=== PATIENT | male | born 1980 | race Caucasian/White ===

== ENCOUNTER 2020-12-28 06:12 | Outpatient (REF) | payer OTHER, SELFPAY ==
[2020-12-28 07:01] LABS: MANUAL DIFF FLAG NO
[2020-12-28 07:10] LABS: Basophils Absolute Auto 0.1 X10*3/uL (0.0-0.2); Basophils Percent Auto 0.6 % (0-2); Eosinophils Absolute Auto 0.3 X10*3/uL (0.0-0.4); Eosinophils Percent Auto 2.7 % (0-4); Hematocrit 48.3 % (42-52); Imm Gran Abs Auto 0.05 X10*3/uL (0.00-0.03); Imm Gran Pct Auto 0.4 % (0.0-0.4); Lymphocytes Absolute Auto 2.8 X10*3/uL (1.2-4.9); Lymphocytes Percent Auto 22.7 % (20-40); Mean Corpuscular HGB Conc 33.1 g/dl (31.0-36.0); Mean Corpuscular Hemoglobin 29.3 pg (27.0-33.0); Mean Corpuscular Volume 88.3 fL (80-98); Mean Platelet Volume 9.9 fL (9.4-12.4); Monocytes Percent Auto 8.1 % (2-11); Neutrophils Absolute Auto 7.9 X10*3/uL (2.0-8.3); Neutrophils Percent Auto 65.5 % (45-73); Platelet Count 384 X10*3/uL (160-400); Red Blood Count 5.47 X10*6/uL (4.60-5.80); Red Cell Distribution Width 13.2 % (11.0-16.0); White Blood Count 12.1 X10*3/uL (4.8-10.8)
[2020-12-28 07:36] LABS: Alanine Aminotransferase 15 U/L (0-40); Albumin Level 4.6 g/dL (3.5-5.0); Alkaline Phosphatase 111 U/L (39-117); Anion Gap 12 (12-20); Aspartate Amino Transferase 15 U/L (5-37); Bilirubin Total 0.6 mg/dL (0.0-1.0); Blood Urea Nitrogen 8 mg/dL (9-16); Calcium 9.9 mg/dL (8.4-10.2); Carbon Dioxide 30 mmol/L (22-29); Chloride 101 mmol/L (96-108); Cholesterol 200 mg/dL; Estimated Glomerular Filt Rate > 60; Glucose Fasting 113 mg/dL (60-99); HDL Cholesterol 41 mg/dL; LDL Cholesterol Calculated 128 mg/dl; Potassium 5.1 mmol/L (3.3-5.1); Sodium 138 mmol/L (135-145); Total Protein 7.7 g/dL (6.5-8.0); Triglycerides 158 mg/dL
[2020-12-28 11:50] LABS: Prostate Specific Antigen Scr 1.14 ng/mL (<0.05-4.0)
== END 2020-12-28 06:13 | disposition home or self-care (01) ==
LOC: HO.LAB 06:12
PROVIDERS: PCP Internal Medicine; Visit Provider Internal Medicine
DX: J44.9 Chronic obstructive pulmonary disease, unspecified (principal); I10 Essential (primary) hypertension; R35.1 Nocturia; Z12.5 Encounter for screening for malignant neoplasm of prostate
CPT/HCPCS: 36415; 80053; 80061; 84153; 85025

== ENCOUNTER 2021-09-26 12:55 | Outpatient (REF) | payer OTHER, SELFPAY ==
[2021-09-26 13:09] LABS: MANUAL DIFF FLAG NO
[2021-09-26 13:36] LABS: Basophils Absolute Auto 0.1 X10*3/uL (0.0-0.2); Basophils Percent Auto 0.4 % (0-2); Eosinophils Absolute Auto 0.4 X10*3/uL (0.0-0.4); Eosinophils Percent Auto 2.2 % (0-4); Hematocrit 44.9 % (42.0-52.0); Hemoglobin 14.6 g/dl (14.0-18.0); Imm Gran Abs Auto 0.06 X10*3/uL (0.00-0.03); Imm Gran Pct Auto 0.4 % (0.0-0.4); Lymphocytes Absolute Auto 3.1 X10*3/uL (1.2-4.9); Mean Corpuscular HGB Conc 32.5 g/dl (31.0-36.0); Mean Corpuscular Hemoglobin 29.3 pg (27.0-33.0); Monocytes Absolute Auto 1.1 X10*3/uL (0.1-1.2); Monocytes Percent Auto 6.8 % (2-11); Neutrophils Absolute Auto 11.5 x10*3/uL (2.0-8.3); Neutrophils Percent Auto 71.2 % (45-73); Platelet Count 367 X10*3/uL (160-400); Red Blood Count 4.99 X10*6/uL (4.60-5.80); Red Cell Distribution Width 13.3 % (11.0-16.0); White Blood Count 16.2 X10*3/uL (4.8-10.8)
[2021-09-26 14:00] LABS: Estimated Average Glucose 123 mg/dL; Hemoglobin A1c % 5.9 %
[2021-09-26 14:09] LABS: Alanine Aminotransferase 15 U/L (0-40); Albumin Level 4.5 g/dL (3.5-5.0); Alkaline Phosphatase 92 U/L (39-117); Anion Gap 12 (12-20); Aspartate Amino Transferase 13 U/L (5-37); Bilirubin Total 0.4 mg/dL (0.0-1.0); Blood Urea Nitrogen 13 mg/dL (9-16); Calcium 9.9 mg/dL (8.4-10.2); Carbon Dioxide 29 mmol/L (22-29); Chloride 105 mmol/L (96-108); Estimated Glomerular Filt Rate > 60; Glucose Random 96 mg/dL (60-115); Potassium 4.5 mmol/L (3.3-5.1); Sodium 141 mmol/L (135-145); Total Protein 7.5 g/dL (6.5-8.0)
== END 2021-09-26 12:56 | disposition home or self-care (01) ==
LOC: HO.LAB 12:55
PROVIDERS: PCP Internal Medicine; Visit Provider Internal Medicine
DX: I10 Essential (primary) hypertension (principal); J44.9 Chronic obstructive pulmonary disease, unspecified; R73.03 Prediabetes
CPT/HCPCS: 36415; 80053; 83036; 85025

== ENCOUNTER 2021-10-13 07:51 | Outpatient (RCR) | payer OTHER, SELFPAY ==
--- NOTE | 2021-10-13 11:35 | MHC.PT.EP ---
[facility] [place] Office [place] Office [place] Office [address] Ted Fraser [address] [phone] F: [phone] F: [phone] F: [phone] F: [phone] Physical Therapy Plan of Care Date of Evaluation: Date of Surgery: NA Diagnosis: Right SI Dysfunction Assessment: Jass is 41 M referred to PT for right SI dysfunction , upon evaluation he presents with R LBP that is relieved during extension positions. He is able to perform his ADLs and has returned to work but does have difficulty with some due to pain such as putting on his shoes. His impairments are consistent with that of an extension preference classification as long as moderately weak TrAs. He would benefit from skilled PT to address the aforementioned impairments and improve tolerance to functional activities. Frequency and Duration: The patient will be seen 2/week for 4 weeks Short Term Goals: Patient will be self aware of pain management strategies in 2 weeks. Patient will develop postural awareness in order to prevent onset of pain in 2 weeks. [facility] Goals: Pt will be able to move trunk through all planes of motion without pain which will enable him to dress his lower body in 3 weeks Patient will be I will HEP to ensure retirement pain management and retention of functional capabilities in 4 weeks. Patient will demonstrate an increase in muscle strength by 1 grade and return to PLOF without pain in 4 weeks Treatment Plan: Modalities to reduce pain, spasms and effusion. Manual therapy to restore motion and function. Therapeutic exercise to improve strength and flexibility. Neuromuscular re-education for posture and balance. Therapeutic activities to return to functional activities of daily living. Electronically signed by: Tri Blanton PT DPT Please sign and return to therapist. Thank you for your referral.
--- NOTE | 2021-11-13 15:48 | MHC.PT.DC ---
[facility] [place] Office [place] Office [place] Office [address] Ted Fraser [address] [phone] F: [phone] F: [phone] F: [phone] F: [phone] Physical Therapy Discharge Report Diagnosis: Right SI Dysfunction Date of Surgery: NA Date of Evaluation: 10/13/21 Date of Discharge: 11/13/21 Treatments to Date: 1 Cancellations to Date: 4 No Shows to Date: 2 Discharge Status: Visit Non-compliance Discharge Summary: Jass canceled 2 weeks of appointment after evaluation due to in the family. After that he no showed for 2 appointments. He has not attended any PT for over a month. He is therefore being d/c for non compliance. Electronically signed by: Tri Blanton, PT DPT Please sign and return to therapist. Thank you for your referral.
== END 2021-11-13 15:49 | disposition home or self-care (01) ==
LOC: HO.PT 07:51
PROVIDERS: PCP Internal Medicine; Visit Provider Internal Medicine
DX: M46.1 Sacroiliitis, not elsewhere classified (principal)
CPT/HCPCS: 97110; 97112; 97161

== ENCOUNTER 2021-10-23 13:59 | Outpatient (REF) | payer OTHER, SELFPAY ==
[2021-10-23 14:11] LABS: Basophils Absolute Auto 0.1 X10*3/uL (0.0-0.2); Basophils Percent Auto 0.6 % (0-2); Eosinophils Absolute Auto 0.4 X10*3/uL (0.0-0.4); Eosinophils Percent Auto 2.4 % (0-4); Hematocrit 46.6 % (42.0-52.0); Hemoglobin 15.5 g/dl (14.0-18.0); Imm Gran Abs Auto 0.06 X10*3/uL (0.00-0.03); Imm Gran Pct Auto 0.4 % (0.0-0.4); Lymphocytes Absolute Auto 3.4 X10*3/uL (1.2-4.9); Lymphocytes Percent Auto 23.2 % (20-40); MANUAL DIFF FLAG NO; Mean Corpuscular HGB Conc 33.3 g/dl (31.0-36.0); Mean Corpuscular Hemoglobin 29.5 pg (27.0-33.0); Mean Corpuscular Volume 88.8 fL (80.0-98.0); Mean Platelet Volume 9.4 fL (9.4-12.4); Neutrophils Absolute Auto 9.8 x10*3/uL (2.0-8.3); Neutrophils Percent Auto 66.4 % (45-73); Platelet Count 405 X10*3/uL (160-400); Red Blood Count 5.25 X10*6/uL (4.60-5.80); Red Cell Distribution Width 13.2 % (11.0-16.0); White Blood Count 14.8 X10*3/uL (4.8-10.8)
[2021-10-23 14:50] LABS: Lactate Dehydrogenase 177 U/L (118-273)
== END 2021-10-23 14:00 | disposition home or self-care (01) ==
LOC: HO.LAB 13:59
PROVIDERS: PCP Internal Medicine; Visit Provider Internal Medicine
DX: I10 Essential (primary) hypertension (principal); D72.829 Elevated white blood cell count, unspecified
CPT/HCPCS: 36415; 83615; 85025

== ENCOUNTER 2021-11-02 14:26 | Outpatient (REF) | payer OTHER, SELFPAY ==
[2021-11-02 15:44] LABS: Alanine Aminotransferase 17 U/L (0-40); Albumin Level 4.5 g/dL (3.5-5.0); Alkaline Phosphatase 92 U/L (39-117); Anion Gap 14 (12-20); Aspartate Amino Transferase 17 U/L (5-37); Bilirubin Total 0.3 mg/dL (0.0-1.0); Blood Urea Nitrogen 7 mg/dL (9-16); C Reactive Protein 0.28 mg/dL (< or = 0.50); Calcium 9.5 mg/dL (8.4-10.2); Carbon Dioxide 28 mmol/L (22-29); Chloride 103 mmol/L (96-108); Estimated Glomerular Filt Rate > 60; Glucose Random 122 mg/dL (60-115); Potassium 4.6 mmol/L (3.3-5.1); Sodium 140 mmol/L (135-145); Total Protein 7.4 g/dL (6.5-8.0)
[2021-11-02 15:56] LABS: Erythrocyte Sedimentation Rate 2 MM/HR (0-15)
== END 2021-11-02 14:27 | disposition home or self-care (01) ==
LOC: HO.LAB 14:26
PROVIDERS: PCP Internal Medicine; Visit Provider Internal Medicine
DX: I10 Essential (primary) hypertension (principal); D72.829 Elevated white blood cell count, unspecified
CPT/HCPCS: 36415; 80053; 85652; 86140

== ENCOUNTER 2021-12-12 14:33 | Outpatient (REF) | payer OTHER, SELFPAY ==
--- NOTE | ~2021-12-12 | XR_ITS ---
EXAMINATION: XR LUMBOSACRAL SPINE CLINICAL INFORMATION: Back pain, degenerative changes. COMPARISON: Dorsal spine radiographs 08/06/2018. TECHNIQUE: Three views of the lumbosacral spine. FINDINGS: The lumbar vertebral bodies are normal in height and there is normal lumbar lordosis. There are hypoplastic 12th ribs with 4 nonrib-bearing lumbar vertebrae versus normal lumbar segmentation. There is no lumbar vertebral compression, spondylolisthesis, destructive process. There are degenerative disc changes fifth presacral disc level with disc narrowing and vertebral spurring. There are also degenerative disc changes lower thoracic spine also noted on the prior radiographs 2019. The SI joints and visualized sacrum are unremarkable. XR/XR lumbar spine 2-3V IMPRESSION: -Degenerative disc changes lower thoracic and upper lumbar spine. -No vertebral compression, spondylolisthesis, destructive process.
[2021-12-12 14:49] LABS: MANUAL DIFF FLAG NO
[2021-12-12 15:13] LABS: Basophils Absolute Auto 0.1 X10*3/uL (0.0-0.2); Basophils Percent Auto 0.9 % (0-2); Eosinophils Absolute Auto 0.4 X10*3/uL (0.0-0.4); Eosinophils Percent Auto 3.2 % (0-4); Hematocrit 43.9 % (42.0-52.0); Hemoglobin 14.7 g/dl (14.0-18.0); Imm Gran Abs Auto 0.03 X10*3/uL (0.00-0.03); Imm Gran Pct Auto 0.3 % (0.0-0.4); Lymphocytes Absolute Auto 3.4 X10*3/uL (1.2-4.9); Lymphocytes Percent Auto 30.7 % (20-40); Mean Corpuscular HGB Conc 33.5 g/dl (31.0-36.0); Mean Corpuscular Hemoglobin 29.5 pg (27.0-33.0); Mean Platelet Volume 9.9 fL (9.4-12.4); Monocytes Absolute Auto 0.9 X10*3/uL (0.1-1.2); Monocytes Percent Auto 7.9 % (2-11); Neutrophils Absolute Auto 6.3 x10*3/uL (2.0-8.3); Platelet Count 377 X10*3/uL (160-400); Red Blood Count 4.99 X10*6/uL (4.60-5.80); Red Cell Distribution Width 13.3 % (11.0-16.0)
[2021-12-12 15:30] LABS: Appearance Urine CLEAR; Color Urine YELLOW; Glucose Urine UA NEG (NEG); Leukocyte Esterase Urine NEG (NEG); Nitrite Urine NEG (NEG); PH 5.5 (5.0-8.0); Specific Gravity - Urine >= 1.030 (1.005-1.025); Urine Blood NEG (NEG); Urine Ketones 5 MG/DL (NEG); Urine Protein NEG (NEG-TRACE)
[2021-12-12 15:36] LABS: Estimated Average Glucose 123 mg/dL; Hemoglobin A1c % 5.9 %
[2021-12-12 15:41] LABS: Alanine Aminotransferase 16 U/L (0-40); Albumin Level 4.5 g/dL (3.5-5.0); Alkaline Phosphatase 95 U/L (39-117); Anion Gap 15 (12-20); Aspartate Amino Transferase 14 U/L (5-37); Bilirubin Total 0.4 mg/dL (0.0-1.0); Blood Urea Nitrogen 13 mg/dL (9-16); Calcium 9.3 mg/dL (8.4-10.2); Carbon Dioxide 26 mmol/L (22-29); Chloride 102 mmol/L (96-108); Estimated Glomerular Filt Rate > 60; Glucose Random 123 mg/dL (60-115); Potassium 4.3 mmol/L (3.3-5.1); Sodium 139 mmol/L (135-145); Total Protein 7.4 g/dL (6.5-8.0)
== END 2021-12-12 14:34 | disposition home or self-care (01) ==
LOC: HO.LAB 14:33
PROVIDERS: PCP Internal Medicine; Visit Provider Internal Medicine
DX: M54.9 Dorsalgia, unspecified (principal); R10.9 Unspecified abdominal pain
CPT/HCPCS: 36415; 72100; 80053; 81003; 83036; 85025

== ENCOUNTER 2022-06-05 06:27 | Emergency (ER) | payer OTHER, SELFPAY ==
--- NOTE | ~2022-06-05 | CT_ITS ---
EXAMINATION: CT ABDOMEN AND PELVIS WITHOUT CONTRAST CLINICAL INFORMATION: Left flank pain. History of bilateral renal calculi. COMPARISON: Renal ultrasound 10/02/2017. TECHNIQUE: Multidetector volumetric imaging was performed from the superior aspect of the liver through the pubic symphysis. Sagittal and coronal reformatted images were obtained on the technologist's workstation. This CT examination was performed using dose optimization techniques as appropriate, variously including the following: *Automated exposure control *Adjustment of mA and/or kV according to patient size (this includes techniques or standardized protocols for targeted exams where dose is matched to indication/reason for exam; i.e. extremities or head) *Use of iterative reconstruction technique DLP: 490 mGy-cm FINDINGS: LUNG BASES: 2 mm nodule in the right lower lobe just posterior to the major fissure, image 9 series 3. No focal consolidation or pleural effusion. LIVER, GALLBLADDER, AND BILIARY TREE: The noncontrast liver is normal in size, shape and attenuation without discrete focal lesion. Normal appearance of the gallbladder. No biliary ductal dilatation. PANCREAS: Limited noncontrast examination, unremarkable. SPLEEN: Limited noncontrast examination, unremarkable. ADRENAL GLANDS: No adrenal nodule or mass. KIDNEYS AND URETERS: No hydroureteronephrosis or ureteral calculi. There is a 7 mm calculus in the lower right kidney measuring 956 Hounsfield units located at 9 cm from the skin surface of the posterior axillary line (3:277). There is a grouped of less denser calcifications in the lateral mid to upper right kidney (2:25), suggesting calcifications within renal tubules/focal medullary nephrocalcinosis. There is a punctate calculus in the lower right kidney (2:29). No significant perinephric fat stranding. Evaluation of focal renal lesion is limited in the absence of IV contrast. There is a simple fluid cyst in the anterior surface of the left kidney measuring 4.8 cm with some equivocal thin internal septations, classified as Bosniak 1/2 and for which no imaging follow-up is recommended. Cortical scarring of the lateral lower left kidney. BLADDER: Unremarkable. GASTROINTESTINAL TRACT: Tiny hiatal hernia with prominent but subcentimeter short axis lower periesophageal lymph nodes, for instance measuring 0.7 cm on image 6 series 2. The stomach and the small bowel are nondilated. Normal appendix. Mild colonic diverticulosis. No pericolonic inflammatory changes. No evidence of bowel obstruction. Nonspecific luminal narrowing of the proximal transverse colon, likely related with peristalsis. Nonspecific bulky high density material in the cecum measuring up to 4 cm in length (2:38). ABDOMINAL WALL: No significant hernia is appreciated. LYMPH NODES: No lymphadenopathy. VASCULAR: Abdominal aorta is of normal diameter. Scattered atherosclerotic disease. PELVIC VISCERA: Central coarse prostatic calcifications. No pelvic mass. Symmetric seminal vesicles. OSSEOUS STRUCTURES: Mild superior endplate compression deformity at L1, new compared to radiograph from 12/12/2021. CT/CT abdomen pelvis wo IV con IMPRESSION: 1. No hydroureteronephrosis or ureteral calculi. 2. Nonobstructive right-sided renal calculi, largest measuring 7 mm in the lower right kidney. 3. Mild diverticulosis but no evidence of acute diverticulitis. 4. Nonspecific bulky/polypoid high density material in the cecum, recommend correlation with colonoscopy to rule out underlying lesions. Areas of luminal narrowing in the transverse colon are suboptimally assessed due to underdistention and may be related with peristalsis. No pericolonic inflammatory changes. No evidence of bowel obstruction. 5. Tiny hiatal hernia with a few prominent but not pathologically enlarged lower esophageal lymph nodes. Recommend clinical correlation for gastritis/reflux disease and if pertinent correlation with upper endoscopy. 6. Age indeterminate compression deformity at L1, correlate with point tenderness. 7. Incidentally noted 2 mm pulmonary nodule in the right lower lobe. Assuming patient has no history of malignancy, recommend follow-up per Fleischner Society recommendations. According to the UPDATED 2017 Fleischner Society recommendations, the advised followup imaging for solid nodules < 6 mm is: LOW RISK PATIENT: No routine follow up. HIGH RISK PATIENT: Optional CT at 12 months. Fleischner guidelines were followed.
[2022-06-05 06:42] VITALS: BP 151/86; PULSE 93; RESP 16; TEMP 36.7; O2SAT 99
[2022-06-05 07:38] LABS: MANUAL DIFF FLAG NO
[2022-06-05 07:39] LABS: Basophils Absolute Auto 0.1 X10*3/uL (0.0-0.2); Basophils Percent Auto 0.6 % (0-2); Eosinophils Absolute Auto 0.4 X10*3/uL (0.0-0.4); Eosinophils Percent Auto 3.2 % (0-4); Hematocrit 42.7 % (42.0-52.0); Hemoglobin 14.3 g/dl (14.0-18.0); Imm Gran Abs Auto 0.03 X10*3/uL (0.00-0.03); Imm Gran Pct Auto 0.3 % (0.0-0.4); Lymphocytes Absolute Auto 2.6 X10*3/uL (1.2-4.9); Lymphocytes Percent Auto 22.3 % (20-40); Mean Corpuscular HGB Conc 33.5 g/dl (31.0-36.0); Mean Corpuscular Hemoglobin 29.4 pg (27.0-33.0); Mean Corpuscular Volume 87.9 fL (80.0-98.0); Mean Platelet Volume 9.4 fL (9.4-12.4); Monocytes Absolute Auto 0.7 X10*3/uL (0.1-1.2); Monocytes Percent Auto 6.2 % (2-11); Neutrophils Absolute Auto 7.8 x10*3/uL (2.0-8.3); Neutrophils Percent Auto 67.4 % (45-73); Platelet Count 352 X10*3/uL (160-400); Red Blood Count 4.86 X10*6/uL (4.60-5.80); Red Cell Distribution Width 13.5 % (11.0-16.0); White Blood Count 11.6 X10*3/uL (4.8-10.8)
[2022-06-05 07:59] LABS: Anion Gap 11 (12-20); Blood Urea Nitrogen 14 mg/dL (9-16); Calcium 9.5 mg/dL (8.4-10.2); Carbon Dioxide 30 mmol/L (22-29); Chloride 105 mmol/L (96-108); Creatinine Clr Calc Pharmacy 114.7; Estimated Glomerular Filt Rate > 60; Glucose Random 108 mg/dL (60-115); Potassium 4.2 mmol/L (3.3-5.1); Sodium 142 mmol/L (135-145)
--- NOTE | 2022-06-05 08:32 | ED.BACK ---
HPI - Back Pain/Injury General Chief Complaint: Abdominal Pain Stated Complaint: back pain Time Seen by Provider: 06/05/22 08:24 Source: patient Mode of arrival: ambulatory Limitations: no limitations History of Present Illness HPI Narrative: Patient is a 41-year-old male presents to the emergency department for evaluation of bilateral lower back /flank pain. Onset of symptoms was 3 days ago. He is also endorsing difficulty with urination, described as difficulty initiating stream. Denies dysuria, urinary frequency, hematuria. He reports a history of nephrolithiasis approximately 6 years ago requiring multiple lithotripsies. Has not had any recurrent issues with kidney stones. At this time he denies abdominal pain, nausea, vomiting, chest pain, shortness of breath, numbness or tingling of the perineum or bilateral lower extremities, bladder bowel dysfunction. He denies any precipitating injuries or falls. He does however report that he occasionally does some heavy lifting, but does not recall a precipitating event that would have brought this pain on. MD elicited complaint: back pain Related Data Previous Rx's Medication Instructions Recorded cyclobenzaprine 10 mg tablet 10 mg PO TID PRN muscle spasm #14 06/05/22 tabs naproxen 500 mg tablet 500 mg PO BID PRN pain #14 tabs 06/05/22 Allergies Allergy/AdvReac Type Severity Reaction Status Date / Time No Known Allergies Allergy Unverified 01/21/20 17:08 [No Known Allergies*] Review of Systems Review of Systems: Constitutional: No weight loss, fever, chills, weakness or fatigue. HEENT: No visual loss, blurred vision, double vision. No hearing loss, sneezing, congestion, runny nose or sore throat. Skin: No rash or itching. Cardiovascular: No chest pain, chest pressure or chest discomfort. No palpitations or pedal edema. Respiratory: No shortness of breath, cough or sputum production. Gastrointestinal: No anorexia, nausea, vomiting or diarrhea. No abdominal pain or blood in stool. Genitourinary: No burning micturition. No urinary frequency or incontinence. Difficulty initiating urination Neurologic: No headache, dizziness, syncope, unilateral weakness, ataxia, numbness or tingling in the extremities. No change in bowel or bladder control. Musculoskeletal: + Back pain as noted in HPI. No joint pain or stiffness. Hematologic: No bleeding or bruising. Lymphatics: No enlarged lymph nodes. Psychiatric:No depression or anxiety. Endocrine: No reports of sweating. No cold or heat intolerance. No polyuria or polydipsia. Yes all other systems are reviewed and are negative [facility] Past Medical History Attestation statement: The following information was validated with the patient. Source: old records reviewed Social History Social History Advance Directives: No Advance Directives Information Provided: No Physical Exam Vital Signs: Vital Signs: Last Vital Signs Temp 97.7 F 06/05/22 11:30 Pulse 68 06/05/22 11:30 Resp 18 06/05/22 11:30 BP 143/83 H 06/05/22 11:30 Pulse Ox 99 06/05/22 11:30 O2 Del Method 06/05/22 11:30 BMI result Body Mass Index 30.0 Vital signs have been reviewed as normal and appeared to be correct. Blood pressure normal.? Heart rate normal.? Respiration rate normal. Temperature normal.? Oxygen saturation normal. Appearance: Alert.?Oriented to person, place and time. No acute distress.?Normal affect. Eyes: Pupils equal, round and reactive to light.? ENT: Pharynx normal.?? Neck: Normal inspection.? Neck supple.?? CVS: Heart sounds normal. Normal heart rate and rhythm.? Pulses normal; bilateral radial pulses 2+, bilateral posterior tibial/dorsalis pedis pulses 2+.? Respiratory: No respiratory distress.? Lung sounds clear to auscultation bilaterally?? Abdomen: Soft and non-tender. Normoactive bowel sounds. No pulsatile mass.?? Skin: Skin warm and dry.? Normal skin color.? Extremities: No lower extremity edema.? No calf ttp? Back: bilateral CVA tenderness upon palpation. Tenderness upon palpation over bilateral SI joint.No midline spinal tenderness, step-off's, or deformity. Full ROM intact in bilateral lower extremities. Straight leg test Negative on right; Straight leg test negative on left. No rashes, lesions, areas of induration or fluctuance, or signs of infection noted. Neuro: Moves all extremities spontaneously. 5/5 strength in hip extension/flexion, abduction, adduction. Sensation to light touch intact bilaterally. Patellar and Achilles reflex 2+ bilaterally. No ataxia, gait normal and steady.. No focal neuro deficits. Course Reevaluation(s) Reevaluation #1: CBC reveals a mild leukocytosis 11.6 without left shift. CMP is overall unremarkable, lipase within normal limits, do not suspect biliary or hepatic etiology for pain at this time. Urinalysis without evidence of infection, or microscopic hematuria, glucosuria is however present, with random serum glucose 108. CT of the abdomen and pelvis reveals a nonobstructive right-sided renal calculi largest measuring 7 mm in the lower right kidney the, no hydroureteronephrosis or ureteral calculi, at this time have a lower suspicion that pain is in relation to nonobstructive renal calculi. CT also with nonspecific High-density material within the cecum, with recommendation for correlation with colonoscopy to exclude underlying lesion, currently no evidence of bowel obstruction or pericolonic inflammatory changes, patient does endorse that he had a colonoscopy approximately 8 years ago due to IBS, he states he believes he may have had polyps removed at that time but is not certain, denies any family history of colon cancer, and he is without any constitutional or GI symptoms.. CT revealing a compression deformity at L1, this does correlate with the area of tenderness upon palpation, advised plan of care for management with NSAIDs, muscle relaxant, outpatient follow-up with primary care provider and consideration of physical therapy/referral to back specialist. CT revealing incidental finding of pulmonary nodule in the right lower lobe, no history of malignancy, discussed with patient recommendation for outpatient follow-up with primary care provider, there to be made aware of this nodule, currently no recommendation for routine follow-up. Patient verbalizes understanding of all the above information, is agreeable with plan of care, at this time stable for discharge. Time: 10:57 Medications Administered Discontinued Medications Generic Name Dose Route Start Last Admin Trade Name Freq PRN Reason Stop Dose Admin Sodium Chloride 1,000 mls @ 999 mls/hr 06/05/22 08:45 06/05/22 09:01 Ns IV 06/05/22 09:45 999 mls/hr .Q1H1M FINN Administration Ketorolac Tromethamine 30 mg 06/05/22 08:37 06/05/22 09:01 Ketorolac Tromethamine 30 Mg/Ml Vial IVPUSH 06/05/22 08:38 30 mg ONCE ONE Administration Medical Decision Making Medical Decision Making MDM Narrative: patient is a 41-year-old male with past medical history of hypertension, Renal calculi presenting to emergency department for evaluation of lower back/flank pain as noted in HPI. at the time of examination he is overall well appearing, but does appear uncomfortable. He is afebrile without tachycardia, tachypnea, or hypoxia. Abdominal examination is benign. Bilateral CVA/SI joint tenderness upon palpation. No focal neurological deficits. Discussed with patient plan of care, will obtain CBC, CMP, urinalysis, CT of the abdomen and pelvis. At this time low suspicion for appendicitis, diverticulitis, concern for nephrolithiasis, ureteral calculi, obstructive stone, hydronephrosis, urinary tract infection, pyelonephritis. Patient without high-risk past medical history, at this time not consistent with spinal fracture, spinal infection, epidural abscess, AAA, dissection. No concern for cauda equina syndrome upon examination. Pain may be muscular in nature, cannot completely exclude with this, however will evaluate for alternative etiology at this time. Patient received 1 L normal saline IVF, ketorolac IV for pain. Differential Diagnosis Differential Diagnoses: The differential diagnosis associated with the presentation includes ( As noted above) Lab Data MDM Lab Attestation statement: I reviewed the patient's lab results. 06/05/22 07:33 06/05/22 07:33 Labs: Lab Results 06/05/22 06/05/22 06/05/22 Range/Units 07:33 07:33 08:29 WBC 11.6 H (4.8-10.8) X10*3/uL RBC 4.86 (4.60-5.80) X10*6/uL Hgb 14.3 (14.0-18.0) g/dl Hct 42.7 (42.0-52.0) % MCV 87.9 (80.0-98.0) fL MCH 29.4 (27.0-33.0) pg MCHC 33.5 (31.0-36.0) g/dl RDW 13.5 (11.0-16.0) % Plt Count 352 (160-400) X10*3/uL MPV 9.4 (9.4-12.4) fL Immature Gran % (Auto) 0.3 (0.0-0.4) % Neut % (Auto) 67.4 (45-73) % Lymph % (Auto) 22.3 (20-40) % [place] % (Auto) 6.2 (2-11) % Eos % (Auto) 3.2 (0-4) % Baso % (Auto) 0.6 (0-2) % Lymph # (Auto) 2.6 (1.2-4.9) X10*3/uL [place] # (Auto) 0.7 (0.1-1.2) X10*3/uL Eos # (Auto) 0.4 (0.0-0.4) X10*3/uL Baso # (Auto) 0.1 (0.0-0.2) X10*3/uL Abs Immat Gran (auto) 0.03 (0.00-0.03) X10*3/uL Absolute Neuts (auto) 7.8 (2.0-8.3) x10*3/uL Absolute Nucleated RBC 0.000 (0.0-0.012) X10*3/uL Nucleated RBC % (auto) 0.0 (0.0-0.2) /100WBC Sodium 142 (135-145) mmol/L Potassium 4.2 (3.3-5.1) mmol/L Chloride 105 (96-108) mmol/L Carbon Dioxide 30 H (22-29) mmol/L Anion Gap 11 L (12-20) BUN 14 (9-16) mg/dL Creatinine 0.79 (0.5-1.4) mg/dL Estim Creat Clear Calc 114.7 Estimated GFR > 60 Random Glucose 108 (60-115) mg/dL Calcium 9.5 (8.4-10.2) mg/dL Total Bilirubin 0.3 (0.0-1.0) mg/dL Direct Bilirubin < 0.2 (0.0-0.5) mg/dL AST 19 (5-37) U/L ALT 25 (0-40) U/L Alkaline Phosphatase 116 (39-117) U/L Total Protein 7.1 (6.5-8.0) g/dL Albumin 4.3 (3.5-5.0) g/dL Lipase 25 (8-78) U/L Urine Color Yellow Urine Appearance Cloudy Urine pH 5.5 (5.0-9.0) Ur Specific [place] 1.015 (1.005-1.025) Urine Protein Negative (Neg-Trace) mg/dL Urine Glucose (UA) 100 H (Negative) mg/dL Urine Ketones Negative (Negative) mg/dL Urine Blood Negative (Negative) Urine Nitrite Negative (Negative) Ur Leukocyte Esterase Negative (Negative) Independent Interpretation I performed an independent interpretation of an: CT Scan Radiology Impression Discussion of test interpretation with radiology: I have reviewed the radiologist's reading. Radiologist Impression: CT/CT abdomen pelvis wo IV con IMPRESSION: 1.? No hydroureteronephrosis or ureteral calculi. 2.? Nonobstructive right-sided renal calculi, largest measuring 7 mm in the lower right kidney. 3.? Mild diverticulosis but no evidence of acute diverticulitis. 4.? Nonspecific bulky/polypoid high density material in the cecum, recommend correlation with colonoscopy to rule out underlying lesions. Areas of luminal narrowing in the transverse colon are suboptimally assessed due to underdistention and may be related with peristalsis. No pericolonic inflammatory changes. No evidence of bowel obstruction. 5.? Tiny hiatal hernia with a few prominent but not pathologically enlarged lower esophageal lymph nodes. Recommend clinical correlation for gastritis/reflux disease and if pertinent correlation with upper endoscopy. 6.? Age indeterminate compression deformity at L1, correlate with point tenderness. 7.? Incidentally noted 2 mm pulmonary nodule in the right lower lobe. Assuming patient has no history of malignancy, recommend follow-up per Fleischner Society recommendations. According to the UPDATED 2017 Fleischner Society recommendations, the advised followup imaging for solid nodules < 6 mm is: LOW RISK PATIENT: No routine follow up. HIGH RISK PATIENT: Optional CT at 12 months.? Prescription Management I considered prescription management with: Pain Medication Discharge Plan Discharge Clinical Impression: Acute lumbar back pain, Nephrolithiasis, Closed compression fracture of L1 vertebra, Incidental pulmonary nodule Patient Disposition: Home, Self-Care Additional Instructions: As we discussed, your CT today shows an L1 compression deformity, this correlates with your area of pain. Engage in gentle stretching exercises of the lower back, apply ice /heat to the area for 10-15 minutes 3-4 times daily. You can take Tylenol 500 mg, 2 tablets (1,000mg) every 4-6 hours as needed for pain, but not to exceed 3 doses daily (3,000mg).? A prescription for naproxen was sent to your pharmacy, do not take additional [id number] ibuprofen/ Advil/ Aleve/Motrin/ aspirin while taking this medication as they are of the same drug class. I have also sent a prescription for cyclobenzaprine/ Flexeril to the pharmacy, this is a muscle relaxant, it may make you drowsy, you should not drive, drink alcohol, or operate machinery while taking this medication. As discussed please follow-up with your primary care provider, they may consider physical therapy, or referral for back specialist if symptoms persist On your CT scan there were a couple of incidental findings. Please contact your primary care provider to arrange for a follow-up visit. They should be made aware that you have a right lower lobe pulmonary nodule, at this time there is no indication for any routine follow-up, however they should be made aware. You have been given contact information for the gastroenterology office associated with this hospital. There is an incidental finding within the cecum of your GI tract, as we discussed, they may consider additional follow-up for this, possible colonoscopy. Please contact their office to arrange for an appointment. You may return back to the emergency department with any new or worsening symptoms or concerns. Prescriptions: New cyclobenzaprine 10 mg tablet 10 mg PO TID PRN (Reason: muscle spasm) Qty: 14 0RF naproxen 500 mg tablet 500 mg PO BID PRN (Reason: pain) Qty: 14 0RF Referrals: Dannielle Dinero MD [Physician] - Stand Alone Forms: Work/School Release Interventions: ED Discharge Assessment Last Done: 06/05/22 11:41 Discharge Date/Time: 06/05/22 11:42
[2022-06-05 08:42] LABS: Appearance Urine Cloudy; Color Urine Yellow; Glucose Urine UA 100 mg/dL (Negative); Leukocyte Esterase Urine Negative (Negative); Nitrite Urine Negative (Negative); PH 5.5 (5.0-9.0); Specific Gravity - Urine 1.015 (1.005-1.025); Urine Blood Negative (Negative); Urine Ketones Negative (Negative); Urine Protein Negative (Neg-Trace)
[2022-06-05 09:01] LABS: Alanine Aminotransferase 25 U/L (0-40); Albumin Level 4.3 g/dL (3.5-5.0); Alkaline Phosphatase 116 U/L (39-117); Aspartate Amino Transferase 19 U/L (5-37); Bilirubin Direct < 0.2 mg/dL (0.0-0.5); Bilirubin Total 0.3 mg/dL (0.0-1.0); Lipase 25 U/L (8-78); Total Protein 7.1 g/dL (6.5-8.0)
[2022-06-05] MEDS: 0.9 % Sodium Chloride 1,000 ML 999 ML IV (09:01)
[2022-06-05] MEDS: Ketorolac Tromethamine 30 MG/ML VIAL IVPUSH (09:01)
[2022-06-05 11:30] VITALS: BP 143/83; PULSE 68; RESP 18; TEMP 36.5; O2SAT 99
== END 2022-06-05 11:42 | disposition home or self-care (01) ==
PROVIDERS: Nurse Practitioner Family; Emergency Provider Emergency Medicine; PCP Internal Medicine
DX: M54.50 Low back pain, unspecified (principal); M48.56XA Collapsed vertebra, not elsewhere classified, lumbar region, initial encounter for fracture; N20.0 Calculus of kidney; R91.1 Solitary pulmonary nodule
CPT/HCPCS: 36415; 74176; 80048; 80076; 81003; 83690; 85025; 96374; 99283; 99284; J1885

== ENCOUNTER 2022-06-23 10:54 | Outpatient (REF) | payer OTHER, SELFPAY ==
[2022-06-23 11:05] LABS: MANUAL DIFF FLAG NO
[2022-06-23 11:06] LABS: White Blood Count 9.9 X10*3/uL (4.8-10.8)
[2022-06-23 11:07] LABS: Basophils Absolute Auto 0.1 X10*3/uL (0.0-0.2); Basophils Percent Auto 0.8 % (0-2); Eosinophils Absolute Auto 0.4 X10*3/uL (0.0-0.4); Eosinophils Percent Auto 4.1 % (0-4); Hematocrit 43.9 % (42.0-52.0); Hemoglobin 14.8 g/dl (14.0-18.0); Imm Gran Abs Auto 0.04 X10*3/uL (0.00-0.03); Imm Gran Pct Auto 0.4 % (0.0-0.4); Lymphocytes Absolute Auto 2.6 X10*3/uL (1.2-4.9); Lymphocytes Percent Auto 25.8 % (20-40); Mean Corpuscular HGB Conc 33.7 g/dl (31.0-36.0); Mean Corpuscular Hemoglobin 29.3 pg (27.0-33.0); Mean Corpuscular Volume 86.9 fL (80.0-98.0); Mean Platelet Volume 9.4 fL (9.4-12.4); Monocytes Absolute Auto 0.7 X10*3/uL (0.1-1.2); Monocytes Percent Auto 7.3 % (2-11); Neutrophils Absolute Auto 6.1 x10*3/uL (2.0-8.3); Neutrophils Percent Auto 61.6 % (45-73); Platelet Count 390 X10*3/uL (160-400); Red Blood Count 5.05 X10*6/uL (4.60-5.80); Red Cell Distribution Width 13.5 % (11.0-16.0)
[2022-06-23 11:26] LABS: Estimated Average Glucose 123 mg/dL; Hemoglobin A1c % 5.9 %
[2022-06-23 12:49] LABS: Cholesterol 185 mg/dL; HDL Cholesterol 42 mg/dL; LDL Cholesterol Calculated 124 mg/dl; Triglycerides 97 mg/dL
== END 2022-06-23 10:55 | disposition home or self-care (01) ==
LOC: HO.LAB 10:54
PROVIDERS: PCP Internal Medicine; Visit Provider Internal Medicine
DX: Z00.00 Encounter for general adult medical examination without abnormal findings (principal)
CPT/HCPCS: 36415; 80061; 82378; 83036; 85025

== ENCOUNTER 2022-08-13 11:23 | Day surgery (SDC) | payer OTHER, SELFPAY ==
[2022-08-13 12:09] VITALS: BMI 29.2
[2022-08-13] MEDS: Sodium Phosphate,Mono-Dibasic 133 ML ENEMA PR (12:30)
[2022-08-13] MEDS: Lactated Ringers 1,000 ML 50 ML IVCONT (12:33)
[2022-08-13 12:36] VITALS: BP 143/102; PULSE 86; RESP 16; TEMP 36.6; O2SAT 99
--- NOTE | 2022-08-13 12:36 | P.CONAN_ITS ---
HPI - Anesthesia Eval Consult details Narrative: screening [facility] Past Medical History Medical History (Updated 08/13/22 @ 12:08 by Ruby Mayorga RN) Asthma GERD (gastroesophageal reflux disease) HTN (hypertension) Hx of renal calculi Family History Family history of problems with anesthesia: No Surgical History Surgical History (Updated 08/13/22 @ 12:09 by Ruby Mayorga RN) Hx of colonoscopy Hx of cystoscopy Hx of esophagogastroduodenoscopy Hx of hand surgery Hx of lithotripsy Hx of tympanostomy tubes History of Problems with Anesthesia: No Social History Social History Patient Tobacco Use Status: Current everyday Tobacco user Tobacco use type: Cigarette Cigarettes Per Day: 20 Use of substances other than those prescribed or required for medical reasons: No Are you DNR?: No Advance Directives: No Advance Directives Information Provided: Yes Meds Allergies Allergy/AdvReac Type Severity Reaction Status Date / Time No Known Allergies Allergy Verified 08/13/22 12:08 [No Known Allergies*] Active Medications: Current Medications Albuterol Sulfate (Albuterol Sulfate (0.083%) 2.5 Mg/3 Ml Vial.Neb) 2.5 mg INHALE PREOP ONE Stop: 08/13/22 12:36 Lactated Ringer's (Lr) 1,000 mls @ 50 mls/hr IVCONT .Q20H FINN Last Admin: 08/13/22 12:33 Dose: 50 mls/hr Sodium Biphosphate/Sodium Phosphate (Sodium Phosphate,Pender-Dibasic 133 Ml Enema) 133 ml SD ONCE PRN PRN Reason: Poor Colonoscopy Prep Results Last Admin: 08/13/22 12:30 Dose: 133 ml Home Medications Medication Instructions Recorded Confirmed Last Taken Type aspirin 81 mg tablet,delayed 81 mg PO DAILY 08/10/22 08/10/22 08/12/22 History release fluticasone propionate 45 2 puff inhalation BID 08/10/22 08/10/22 Unknown History mcg-salmeterol 21 mcg/actuation HFA inhaler (Advair HFA) lisinopril 10 mg tablet 10 mg PO BID 08/10/22 08/10/22 Unknown History loratadine 10 mg tablet (Claritin) 10 mg PO DAILY 08/10/22 08/10/22 08/13/22 08:30 History omeprazole 20 mg capsule,delayed 20 mg PO BID 08/10/22 08/10/22 08/13/22 08:30 History release albuterol sulfate 90 mcg/actuation 2 puff inhalation Q6H PRN 08/13/22 08/13/22 Unknown History aerosol inhaler (ProAir HFA) Shortness Of Breath Or Wheezing oxycodone-acetaminophen 5 mg-325 1 tab PO Q4-6H PRN Back Pain 08/13/22 08/13/22 Unknown History mg tablet (Percocet) Exam Exam Date and Time: August 13, 2022 1236 Height,Weight and Vital Signs: Height 5 ft 4 in Weight 77.111 kg Airway Mallampati Class: II TM Dist: >3cm Neck ROM: Full Loose/Missing/Broken Teeth: No Heart: rr Lungs: cta Assessment and Plan Assessment Anesthesia Assessment: Anesthesia Plan Discussed and Chart Reviewed Final Anesthetic Review Family History of Problems with Anesthesia: No History of Problems with Anesthesia: No NPO: Yes ASA Class: II Final Preanesthetic Review: No Changes in Pt Med Stat, Meds/Allgs Chart Reviewed, Consent Obtained/Reviewed and Anes Risks/Benef Reviewed Patient Risk: Low Procedure Risk: Low Anesthetic Plan Anesthetic Plan: MAC: Disposition: Standard PACU
[2022-08-13 14:11] VITALS: BP 133/78; PULSE 108; RESP 16; TEMP 36.7; O2SAT 95
--- NOTE | 2022-08-13 14:17 | PM.OP ---
Brief Operative Note Date of Service: 08/13/22 Pre-op diagnosis: GERD, Abnormal CT of colon Post-op diagnosis: other (Hiatal hernia, Gastritis, Internal hemorrhoids) Procedure: EGD with biopsies, Colonoscopy to the cecum Surgeon: Arsh Torres Anesthesia: MAC Was an Embedded Software Architect used for this Procedure?: No Estimated blood loss (mL): 2.0 Pathology: other (A. EG Junction at 34cm B. Hiatal hernia) Condition: stable Disposition: PACU
[2022-08-13 14:26] VITALS: BP 143/70; PULSE 85; RESP 18; TEMP 36.6; O2SAT 99
--- NOTE | 2022-08-13 16:45 | OP_ITS ---
DATE OF SERVICE: 08/13/2022 SURGEON: Arsh Torres MD INDICATIONS: The patient presents for evaluation of chronic gastroesophageal reflux and abnormal CT scan of the colon. Full consent has been obtained from him for this, including risks of bleeding and perforation. PREOPERATIVE DIAGNOSIS: POSTOPERATIVE DIAGNOSIS: PROCEDURE PERFORMED: Esophagogastroduodenoscopy with biopsies, and colonoscopy to the cecum. ESTIMATED BLOOD LOSS: COMPLICATIONS: ANESTHESIA: Monitored anesthesia care. ASSISTANTS: SPECIMENS: PREOPERATIVE DIAGNOSES: Gastroesophageal reflux and abnormal CT scan of colon. POSTOPERATIVE DIAGNOSES: Gastroesophageal reflux and abnormal CT scan of colon, moderate sized hiatal hernia, gastritis, gastroesophageal reflux and internal hemorrhoids. DESCRIPTION OF PROCEDURE: The patient was placed in the left lateral decubitus position. The Olympus video gastroscope was passed in the posterior oropharynx and upper esophagus under direct vision. The scope was passed slowly to the distal esophagus. The gastroesophageal junction appeared at 34 cm. This area had some slight irregularity with either small areas of Kunz mucosa or possibly some prolapsing gastric mucosa. There was no esophagitis. The scope was easily entered into stomach. There was a moderate-sized hiatal hernia with some mild gastritis. There was no ulceration nor mass. The scope was advanced to the pylorus and the duodenum was cannulated to the descending portion. The duodenum including the bulb appeared normal without mass or ulceration. The scope was withdrawn back in the stomach. The gastric antrum and body appeared normal with good peristalsis. The scope was retroflexed visualizing the proximal stomach carefully, which appeared normal without any sign of mass or ulceration. The scope was straightened. The scope was withdrawn back into the esophagus. Biopsies were obtained at the EG junction at 34 cm. Scope was readvanced back into the hiatal hernia and biopsies were obtained as well. The scope was withdrawn back to the esophagus. Proximal to the EG junction, the esophageal mucosa appeared normal. The scope was withdrawn from the patient. He was turned around for the colonoscopy. The digital rectal exam revealed no abnormalities. The Olympus video pediatric colonoscope was entered into the rectum and advanced to the cecum. Advancement was somewhat difficult due to lot of spasm as well as a limited prep. However once in the cecum, after copious irrigation and suction, I did obtain a good visualization of the cecum including the appendiceal orifice which appeared normal. I did not visualize any sign of mass as has had been suggested on the CT scan. There was transillumination of light deep in the right lower quadrant as well. The scope was then slowly withdrawn assessing all mucosal surfaces carefully. Preparation throughout the rest of the colon was somewhat limited due to some residual liquid and stool. I did not visualize any sign of mucosal abnormalities, but again visualization was limited. I did not visualize any sign of polyps, colitis, or angiodysplasia. In the rectum, the scope was retroflexed visualizing some small internal hemorrhoids, but no other pathology. The rectal mucosa appeared normal. The scope was straightened out and withdrawn from the patient. He tolerated both procedures well and was returned to the recovery area in stable condition. IMPRESSION: 1. Moderate-sized hiatal hernia. 2. Mild gastritis in the hiatal hernia. 3. Mild changes of reflux, rule out Kunz's esophagus. 4. Internal hemorrhoids. 5. Normal cecum without any sign of mass as has had been suggested on the CT scan. 6. Limited colonoscopy prep in general. PLAN: The patient will continue his current use of Omeprazole once or twice a day for symptomatic relief of reflux. He does report that it works well for him. If there is evidence of Kunz's esophagus, I would recommend repeat upper endoscopy in 3 years. If there is no Kunz's esophagus, then I do not think he would need any further upper endoscopies as long as the Omeprazole continues to work well for him. In regard to the colonoscopy, given no significant family history of colon cancer and no particular GI symptoms, I would recommend a repeat colonoscopy in 5 years for further screening purposes given the somewhat limited prep. At this point, he will see me on a p.r.n. basis. He was advised not to use any aspirin or NSAIDs for one week. MD SINCERE Sorensen/NIKI / [phone] PANCHO
== END 2022-08-13 15:29 | disposition home or self-care (01) ==
PROVIDERS: PCP Internal Medicine; Visit Provider Internal Medicine
PROC: (CPT 43239; principal; 2022-08-13 12:50)
DX: K21.00 Gastro-esophageal reflux disease with esophagitis, without bleeding (principal); K22.70 Barrett's esophagus without dysplasia; K29.70 Gastritis, unspecified, without bleeding; K44.9 Diaphragmatic hernia without obstruction or gangrene; R93.3 Abnormal findings on diagnostic imaging of other parts of digestive tract; K64.8 Other hemorrhoids; I10 Essential (primary) hypertension; J45.909 Unspecified asthma, uncomplicated; Z79.899 Other long term (current) drug therapy
CPT/HCPCS: 43239; 45378; 88305; 88342

== ENCOUNTER 2023-01-03 17:01 | Outpatient (REF) | payer OTHER, SELFPAY ==
--- NOTE | ~2023-01-03 | XR_ITS ---
EXAMINATION: XR SHOULDER, RIGHT CLINICAL INFORMATION: Right shoulder pain. COMPARISON: None available. TECHNIQUE: AP external rotation, Grashey, scapular Y, and axillary views of the right shoulder. FINDINGS: Acromioclavicular joint space narrowing. Glenohumeral joint is maintained. No fracture or dislocation. Alignment and articulations are normal. Visualized ribs and lung are unremarkable. XR/XR shoulder RT min 2V IMPRESSION: Degenerative change right acromioclavicular joint.
== END 2023-01-03 17:02 | disposition home or self-care (01) ==
LOC: HO.XRAY 17:01
PROVIDERS: PCP Internal Medicine; Visit Provider Internal Medicine
DX: M25.511 Pain in right shoulder (principal)
CPT/HCPCS: 73030

== ENCOUNTER 2023-04-19 16:23 | Emergency (ER) | payer OTHER, SELFPAY ==
--- NOTE | ~2023-04-19 | XR_ITS ---
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 No acute fracture or dislocation. Joint spaces are maintained without significant degenerative change. No soft tissue abnormality. XR/XR hand RT min 3V IMPRESSION: 1. No acute fracture or dislocation. 2. 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
[2023-04-19 16:40] VITALS: BP 151/92; PULSE 77; RESP 20; TEMP 36.6; O2SAT 97; BMI 29.0
--- NOTE | 2023-04-19 16:41 | ED.GENADULT ---
HPI - General Adult General Chief complaint: Wound/Laceration Stated complaint: finger injury Time Seen by Provider: 04/19/23 16:53 Source: patient Mode of arrival: ambulatory Limitations: no limitations History of Present Illness HPI narrative: 42 year old male with pmhx significant for tobacco smoker, HTN, asthma, GERD presents to the ED today with laceration to his right ring finger after smashing it between a table and a 2x4 while at work prior to arrival in ED. Reports immediate pain and bleeding to right ring finger. Presents with a horizontal laceration across the nail on his right ring finger. Rates pain 10/10 at present. Bleeding is controlled. Denies fever, chills, N/V, numbness/tingling/weakness of the UEs. Tetanus is not UTD. Related Data Home Medications Medication Instructions Recorded Confirmed aspirin 81 mg tablet,delayed 81 mg PO DAILY 08/10/22 08/10/22 release fluticasone propionate 45 2 puff inhalation BID 08/10/22 08/10/22 mcg-salmeterol 21 mcg/actuation HFA inhaler (Advair HFA) lisinopril 10 mg tablet 10 mg PO BID 08/10/22 08/10/22 loratadine 10 mg tablet (Claritin) 10 mg PO DAILY 08/10/22 08/10/22 omeprazole 20 mg capsule,delayed 20 mg PO BID 08/10/22 08/10/22 release albuterol sulfate 90 mcg/actuation 2 puff inhalation Q6H PRN 08/13/22 08/13/22 aerosol inhaler (ProAir HFA) Shortness Of Breath Or Wheezing oxycodone-acetaminophen 5 mg-325 1 tab PO Q4-6H PRN Back Pain 08/13/22 08/13/22 mg tablet (Percocet) Allergies Allergy/AdvReac Type Severity Reaction Status Date / Time No Known Allergies Allergy Verified 08/13/22 12:08 [No Known Allergies*] Review of Systems Review of Systems: Constitutional: No fever, chills, fatigue, night sweats, weight changes ENT/Mouth: No ear pain, hearing loss, nasal congestion, sinus pain, rhinorrhea, sore throat Eyes: No eye pain, swelling, redness, vision changes, discharge Cardio: No chest pain, palpitations, TAVAREZ, orthopnea, peripheral edema Pulm: No SOB, cough, sputum, wheezing, dyspnea, hemoptysis GI: No nausea, vomiting, hematemesis, abdominal pain, diarrhea, constipation, hematochezia MSK: No back pain, neck pain, joint pain, myalgias Skin: No lesions, rashes, +laceration to right ring finger Neuro: No weakness, numbness, paresthesias, LOC, dizziness, headache All other systems reviewed and are negative. [facility] Past Medical History Attestation statement: The following information was validated with the patient. Source: old records reviewed and nursing notes reviewed Medical History Hx of renal calculi HTN (hypertension) Asthma GERD (gastroesophageal reflux disease) Surgical History Hx of lithotripsy Hx of cystoscopy Hx of hand surgery Hx of tympanostomy tubes Hx of esophagogastroduodenoscopy Hx of colonoscopy Social History Social History Patient Tobacco Use Status: Current everyday Tobacco user Tobacco use type: Cigarette Cigarettes Per Day: 20 Advance Directives: No Advance Directives Information Provided: No Physical Exam ED Vital Signs: Vital Signs - 24 hr 04/19/23 16:40 Temperature 97.8 F Pulse Rate 77 Respiratory Rate 20 Blood Pressure 151/92 H Pulse Oximetry 97 Oxygen Delivery Method Room Air BMI result Body Mass Index 29.0 Vital signs notable for hypertension likely secondary to pain. Const General: cooperative, comfortable, no acute distress, alert and awake Orientation/consciousness: patient oriented x3 Limitations: no limitations [facility] Head: Yes normal to inspection Ears: hearing grossly normal bilaterally Eyes General: appearance normal, both eyes and all related structures Conjunctivae: conjunctivae normal Sclerae: sclerae normal Pupils: Equal, round and reactive pupils present Resp Effort & Inspection: normal respiratory effort Auscultation: clear to auscultation bilaterally Cardio Rate: regular rate Rhythm: regular rhythm Peripheral pulses: radial pulses present on the right 2+ and ulnar radial pulses present on the right 2+ Skin Other: + refer to photo below Neuro General: patient oriented x3, gait normal and moves all extremities Cranial nerves: Yes Equal, round and reactive pupils present Extrem Other: + please refer to photo below + there is a 1 cm linear laceration lying horizontally across the nail on the right 4th digit. Bleeding controlled. Good color noted to tip of right 4th digit. Does not appeared dusky. No involvement of deeper structures. Full ROM noted to MCP, PIP, and DIP of all digits on right extremity. Full ROM intact to right wrist. Marriage Performer strength intact. Finger to thumb opposition intact. Sensation intact to light touch on all digits of right hand. 2+ radial and ulnar pulses to right hand. RIGHT 4TH DIGIT: General: Yes normal exam except as noted Course Course Course Narrative: RME performed by Rebecca Vinson PA-C. Patient is a 42 year old assigned male at presenting to the emergency department with a right ring finger injury. Smashed it between a table and a 2x4. Imaging ordered. Patient placed back in the waiting room pending room availability and results. Reevaluation(s) Reevaluation #1: 1800-- xr right hand does not demonstrate acute fracture to right ring finger. Tetanus updated. Pain controlled with toradol. 1808-- Discussed case with orthopedic PANayely who recommends laceration closure with 1 suture. Laceration has been cleaned and has been soaking in iodine/saline solution since being brought back from waiting room. The area will be extensively irrigated to ensure no FB before closure. 1844-- Wound closed with one 4.0 nylon suture through nail bed. patient tolerated procedure well. He has remained stable throughout ED visit today. Discussed strict return precautions and worrisome signs and symptoms. All questions answered at this time. Patient is agreeable with disposition and stable for discharge. Medications Administered Discontinued Medications Generic Name Dose Route Start Last Admin Trade Name Td PRN Reason Stop Dose Admin Diphtheria/Tetanus/Acell Pertussis 0.5 ml 04/19/23 16:42 04/19/23 17:22 Diphth,Pertus(Acell),Tet Adult 0.5 Ml Syringe IM 04/19/23 16:43 0.5 ml .ONCE ONE Administration Ketorolac Tromethamine 30 mg 04/19/23 18:01 04/19/23 18:26 Ketorolac Tromethamine 30 Mg/Ml Vial IM 04/19/23 18:02 30 mg ONCE ONE Administration Lidocaine HCl 10 ml 04/19/23 18:18 04/19/23 18:30 Lidocaine Hcl 1 % Mpf 5 Ml Vial SUBCUT 04/19/23 18:19 10 ml ONCE ONE Administration Procedures Laceration Laceration 1: Site: hand (ring finger) Side (If applicable): right Size (cm): 1 Description: linear Depth: simple, single layer Local Anesthetic: lidocaine 1% Amount of anesthesia used (mL): 10 Pre-repair: wound explored, irrigated extensively, deep structures intact, extensive debridement and wound margins revised Skin layer closed with: nylon Size (cm): 4-0 Number of sutures: 1 Technique: simple, interrupted Medical Decision Making Medical Decision Making MDM Narrative: 42 year old male with pmhx significant for tobacco smoker, HTN, asthma, GERD presents to the ED today with laceration to his right ring finger after smashing it between a table and a 2x4 while at work prior to arrival in ED. vital signs notable for slight hypertension likely secondary to pain. Vital signs otherwise within normal limits. Patient is nontoxic appearing and in no acute distress. On examination there is a 1 cm linear laceration lying horizontally across the nail on the right 4th digit. Bleeding controlled. Good color noted to tip of right 4th digit. Does not appeared dusky. No involvement of deeper structures. Full ROM noted to MCP, PIP, and DIP of all digits on right extremity. Full ROM intact to right wrist. Finger to thumb opposition intact. Marriage Performer strength intact. Sensation intact to light touch on all digits of right hand. 2+ radial and ulnar pulses to right hand. Clinical concern for laceration, nail bed injury, subungual hematoma, fracture, open fracture, dislocation. Unlikely compartment syndrome, neurovascular compromise, threat to limb, osteomyelitis, retained foreign body. Plan for x-rays, Tdap, pain control and lac repair. Differential Diagnosis Differential Diagnoses: The differential diagnosis associated with the presentation includes as above. Admission/Observation not indicated. Consult Healthcare Provider Management of the patient was discussed with: Electric Blasting Cap Assembler (Orthopedic RHONDA Dinero) Independent Interpretation I performed an independent interpretation of an: Plain X-Ray Interpretation: X-ray right hand without acute fracture, agree with radiologist's interpretation. Radiology Impression Discussion of test interpretation with radiology: I have reviewed the radiologist's reading. Radiologist Impression: XR hand RT min 3V IMPRESSION: 1. No acute fracture or dislocation. 2. 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 External Record Review External record reviewed: Inpatient record Prescription Management I considered prescription management with: Pain Medication and Antibiotic Chronic Conditions Patient?s care impacted by: Hypertension and Other (tobacco smoker) Social Determinants Patient?s care significantly limited by Social Determinants of Health including: Other Social Determinant of Health Critical Care Time Critical Care Time Critical Care Time: No Discharge Plan Discharge Clinical Impression: Finger laceration Patient Disposition: Home, Self-Care Instructions: Finger Laceration (ED) Additional Instructions: The xray of your right ring finger did not demonstrate a fracture. Your tetanus shot was updated today. Your laceration was closed with 1 suture today. Please keep the area clean, dry and intact to prevent infection. Your nail will likely fall off. PLEASE FOLLOW-UP WITH ORTHO. A REFERRAL HAS BEEN PROVIDED TO YOU. YOU NEED TO CALL THEM TO MAKE AN APPOINTMENT. THEY WILL NOT CALL YOU. Return to the emergency department in 7-10 days or go to urgent care to have suture removed. You have given information to follow-up with [facility] since this was a work related injury. You may take tylenol and ibuprofen for pain/ discomfort. If the wound opens , you cannot control bleeding or you begin to spike a fever, return to the emergency department. In the case of an emergency call 911. Prescriptions: No Action lisinopril 10 mg tablet 10 mg PO BID omeprazole 20 mg capsule,delayed release(DR/EC) 20 mg PO BID aspirin [Aspir-81] 81 mg Tablet,Delayed Release (Dr/Ec) 81 mg PO DAILY loratadine [Claritin] 10 mg Tablet 10 mg PO DAILY fluticasone propion-salmeterol [Advair HFA] 45-21 mcg/actuation Hfa Aerosol Inhaler 2 puff INHALATION BID albuterol sulfate [ProAir HFA] 90 mcg/actuation Hfa Aerosol Inhaler 2 puff INHALATION Q6H PRN (Reason: Shortness Of Breath Or Wheezing) oxycodone-acetaminophen [Percocet] 5-325 mg Tablet 1 tab PO Q4-6H PRN (Reason: Back Pain) Ref[place]: [facility] [place]Provider Group] - 5 days [facility] [Outside] - 5 days Stand Alone Forms: Work/School Release Discharge Date/Time: 04/19/23 19:10
[2023-04-19] MEDS: Diphth,Pertus(ACell),Tet Adult 0.5 ML SYRINGE IM (17:22)
--- NOTE | 2023-04-19 17:52 | PC.NURSE ---
crush inj right indexc finger. good sensation and color in tip. has been soaking in betadine and saline since arrival to bed. awaits providers sutures. bleeding was controlled with pressure
[2023-04-19] MEDS: Ketorolac Tromethamine 30 MG/ML VIAL IM (18:26)
[2023-04-19] MEDS: Lidocaine HCl 1 % MPF 5 ML VIAL 10 ML SUBCUT (18:30)
== END 2023-04-19 19:10 | disposition home or self-care (01) ==
PROVIDERS: Emergency Provider Emergency Medicine; PCP Internal Medicine
DX: S61.214A Laceration without foreign body of right ring finger without damage to nail, initial encounter (principal); S60.414A Abrasion of right ring finger, initial encounter; W26.9XXA Contact with unspecified sharp object(s), initial encounter; Y93.9 Activity, unspecified; Y92.9 Unspecified place or not applicable; Y99.0 Civilian activity done for income or pay; Z23 Encounter for immunization
CPT/HCPCS: 12001; 73130; 90471; 90715; 96372; 99283; 99284; J1885

== ENCOUNTER 2024-01-31 14:11 | Outpatient (REF) | payer OTHER, SELFPAY ==
--- NOTE | ~2024-01-31 | XR_ITS ---
EXAMINATION: XR CHEST CLINICAL INFORMATION: Cough COMPARISON: None available. TECHNIQUE: 2 views of the chest were obtained. FINDINGS: No significant abnormality is noted involving the heart, lungs, mediastinum, bony thorax or soft tissues. XR/XR chest 2V IMPRESSION: Unremarkable examination. Electronically signed by: Rodney Cage MD 02/01/2024 11:42 AM EDT RP
== END 2024-01-31 14:12 | disposition home or self-care (01) ==
LOC: HO.XRAY 14:11
PROVIDERS: PCP Internal Medicine; Visit Provider Internal Medicine
DX: R05.9 Cough, unspecified (principal); R06.2 Wheezing
CPT/HCPCS: 71046

== ENCOUNTER 2024-03-23 15:01 | Outpatient (REF) | payer OTHER, SELFPAY ==
--- NOTE | ~2024-03-23 | XR_ITS ---
EXAMINATION: XR CERVICAL SPINE CLINICAL INFORMATION: Neck pain. COMPARISON: None available. TECHNIQUE: 6 views of the cervical spine were obtained including oblique views, swimmer's lateral view and odontoid view. FINDINGS: There is mild reversal of usual cervical lordosis. This could be positional. There is slight downsloping of the superior endplate of C5 of uncertain etiology. This could be related to old fracture or developmental. Vertebral body height and alignment otherwise unremarkable. Disc spaces normal. Facets normal. Neural foramina are normal. Surrounding bone and soft tissues normal. XR/XR cervical spine 5V IMPRESSION: 1. Slight downsloping of the superior endplate of C5 of uncertain etiology. This could be related to old fracture or developmental. 2. No acute abnormality or degenerative change. 3. Slight reversal of usual cervical lordosis which could reflect normal variation or be positional. Likely without clinical significance. Electronically signed by: Rodney Cage MD 03/24/2024 09:53 AM [facility]
== END 2024-03-23 15:02 | disposition home or self-care (01) ==
LOC: HO.XRAY 15:01
PROVIDERS: PCP Internal Medicine; Visit Provider Internal Medicine
DX: M54.2 Cervicalgia (principal)
CPT/HCPCS: 72050

== ENCOUNTER 2024-05-04 15:04 | Outpatient (REF) | payer OTHER, SELFPAY ==
[2024-05-04 15:24] LABS: MANUAL DIFF FLAG NO
[2024-05-04 15:32] LABS: Basophils Absolute Auto 0.1 X10*3/uL (0.0-0.2); Basophils Percent Auto 0.9 % (0-2); Eosinophils Absolute Auto 0.3 X10*3/uL (0.0-0.4); Hematocrit 41.4 % (42.0-52.0); Imm Gran Abs Auto 0.04 X10*3/uL (0.00-0.03); Imm Gran Pct Auto 0.4 % (0.0-0.4); Lymphocytes Absolute Auto 3.7 X10*3/uL (1.2-4.9); Lymphocytes Percent Auto 38.1 % (20-40); Mean Corpuscular HGB Conc 33.8 g/dl (31.0-36.0); Mean Corpuscular Volume 91.6 fL (80.0-98.0); Mean Platelet Volume 9.7 fL (9.4-12.4); Monocytes Absolute Auto 0.7 X10*3/uL (0.1-1.2); Monocytes Percent Auto 7.4 % (2-11); Neutrophils Absolute Auto 4.9 x10*3/uL (2.0-8.3); Neutrophils Percent Auto 50.2 % (45-73); Platelet Count 320 X10*3/uL (160-400); Red Blood Count 4.52 X10*6/uL (4.60-5.80); Red Cell Distribution Width 13.1 % (11.0-16.0); White Blood Count 9.7 X10*3/uL (4.8-10.8)
[2024-05-04 16:02] LABS: Alanine Aminotransferase 15 U/L (0-40); Albumin Level 4.2 g/dL (3.5-5.0); Alkaline Phosphatase 84 U/L (39-117); Anion Gap 11 (12-20); Aspartate Amino Transferase 19 U/L (5-37); Bilirubin Total 0.3 mg/dL (0.0-1.0); Blood Urea Nitrogen 9 mg/dL (9-16); C Reactive Protein 0.46 mg/dL (< or = 0.50); Carbon Dioxide 30 mmol/L (22-29); Chloride 104 mmol/L (96-108); Cholesterol 178 mg/dL (<200); Estimated Glomerular Filt Rate > 60; Glucose Random 98 mg/dL (60-115); Potassium 4.8 mmol/L (3.3-5.1); Sodium 140 mmol/L (135-145); Total Protein 6.9 g/dL (6.5-8.0)
== END 2024-05-04 15:05 | disposition home or self-care (01) ==
LOC: HO.LAB 15:04
PROVIDERS: PCP Internal Medicine; Visit Provider Internal Medicine
DX: J44.9 Chronic obstructive pulmonary disease, unspecified (principal); I10 Essential (primary) hypertension; K21.9 Gastro-esophageal reflux disease without esophagitis
CPT/HCPCS: 36415; 80053; 82465; 85025; 86140

== ENCOUNTER 2025-01-25 16:19 | Outpatient (AMB) | payer OTHER, SELFPAY ==
--- NOTE | 2025-01-25 16:20 | MHC.PC.OV ---
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 Required: No Accompanied by: Self / Same As Patient Allergies No Known Allergies (No Known Allergies*) Allergy (Verified 01/25/25 16:21) Tobacco use date assessed: 01/25/25 Dental Screening Dental Screen Date: 01/25/25 Did you have a dental visit in the last 12 months?: Yes Did you have a dental problem in the last 6 months where you did not have access to dental care?: No Was dental information given to patient?: Patient has dentist HPI HPI Comments History of Present Illness Details The patient is a 44-year-old male presenting with concerns related to hypertension management and respiratory issues consistent with shortness of breath. The patient has been on lisinopril 20 mg daily for essential hypertension and reports a previous history of using inhalers but claims no recent use. There is high blood pressure noted, and the patient mentions he has not been monitoring his blood pressure at home. The patient was informed about the risks of uncontrolled blood pressure. Regarding respiratory symptoms, the patient has a history of shortness of breath and reports the use of albuterol and Advair to aid breathing, although he acknowledges non-compliance with inhaler use recently. The patient is still experiencing shortness of breath despite symptomatic management with inhalers, attributing this mostly to extensive smoking habits. With a 30-year smoking history of 1.5 packs per day, the patient demonstrates high tobacco dependence, and smoking cessation has been discussed as a priority. He has gastroesophageal reflux disease and is on omeprazole, which he states is effective in managing symptoms. The patient also exhibits dietary-induced diarrhea, occurring 2-3 times per week, with spicy foods as a potential trigger. The patient's family history includes coronary artery disease in the mother who has had a stent and angioplasty. There are no known diagnoses of cancer except for a grandmother with colon cancer. The patient inquires about thyroid issues due to concerns of neck fullness and pain, noting some weight gain but denies significant weight loss. Occasional cold and clammy feelings were mentioned, which could indicate underlying thyroid dysfunction. Medical History: - Essential Hypertension - Gastroesophageal Reflux Disease (GERD) - Shortness of Breath - Smoking (Tobacco Dependence) Surgical History: - Finger surgery - Kidney stone procedure Medications: - Lisinopril 20 mg daily for essential hypertension - Omeprazole for gastroesophageal reflux disease - Aspirin for cardioprotection - Albuterol for shortness of breath - Advair for shortness of breath Family History: - Coronary artery disease in mother with stent and angioplasty - Colon cancer in grandmother Diagnostic Results: - Recent colonoscopy and EGD: Normal Social: - Extensive smoking history of 1.5 packs per day for 30 years - Occasional use of THC to relax at night - Denies alcohol and cocaine use - Dietary triggers for diarrhea: spicy foods PFSH Medical History (Updated 01/25/25 @ 16:40 by Grupo Christopher MD) Weight gain Diarrhea Nicotine dependence Hx of renal calculi HTN (hypertension) Asthma GERD (gastroesophageal reflux disease) Surgical History (Updated 01/22/25 @ 16:15 by Janine Douglas) Hx of lithotripsy Hx of cystoscopy Hx of hand surgery Hx of tympanostomy tubes Hx of esophagogastroduodenoscopy Hx of colonoscopy (~08/13/22) Social History Housing: House Patient Tobacco Use Status: Current everyday Tobacco user Tobacco use type: Cigarette Cigarettes Per Day: 20 e-Cigarette/Vaping Use: Never Used service: No Current occupational status: employed Current occupation: [employer] Questionnaire PHQ-9 Over the last 2 weeks, how often have you been bothered by any of the following problems? 1. Little interest or pleasure in doing things: not at all 2. Feeling down, depressed, or hopeless: not at all 3. Trouble falling or staying asleep, or sleeping too much: not at all 4. Feeling tired or having little energy: not at all 5. Poor appetite or overeating: not at all 6. Feeling bad about yourself - or that you are a failure or have let yourself or your family down: not at all 7. Trouble concentrating on things, such as reading the newspaper or watching television: not at all 8. Moving or speaking so slowly that other people could have noticed. Or the opposite - being so fidgety or restless that you have been moving around a lot more than usual: not at all 9. Thoughts that you would be better off or of hurting yourself in some way: not at all Total score: 0 Depression Screening Interpretation: Negative Depression Screening Done: Yes 71444 - PHQ-9 Billing: Yes Source: Developed by Drs. Arsh Basurto, Sue Farias, Dayron Nunez and colleagues, with an educational maria del roasrio from [employer]. Thrive Questionnaire Date Thrive assessed: 01/25/25 I am a: Patient What is your living situation today?: I have a steady place to live Within the past 12 months, did the food you bought not last and you didn't have the money to get more?: Never true Within the past 12 months, did you worry whether your food would run out before you got money to buy more?: Never true Do you have trouble paying for medicines?: No Do you have trouble getting transportation to medical appointments?: No Do you have trouble paying your heating and electricity bill?: No Do you have trouble taking care of your child, family member or friend?: No Do you have trouble with day-to-day activities such as bathing, preparing meals, shopping, managing finances, etc.?: No Are you currently unemployed and looking for a job?: No Are you interested in more education?: No THRIVE Score: 0 AUDIT C Alcohol Use Questionnaire (AUDIT-C) 1. How often do you have a drink containing alcohol?: Never 3. How often do you have six or more drinks on one occasion?: Never Total Score: 0 Score Reviewed/Action Taken: Yes AMEE-7 AMB Questionnaire AMEE-7 Date AMEE - 7 assessed: 01/25/25 Feeling nervous, anxious, or on edge: 0 = Not at all Not being able to stop or control worryin = Not at all Worrying too much about different things: 0 = Not at all Trouble relaxin = Not at all Being so restless that it is hard to sit still: 0 = Not at all Becoming easily annoyed or irritable: 0 = Not at all Feeling afraid as if something awful might happen: 0 = Not at all Total AMEE-7 score (0-4 normal; 5-9 mild; 10-14 moderate; 15-21 severe): 0 Source: Developed by Drs. Arsh Basurto, Sue Farias, Dayron Nunez and colleagues, with an educational maria del rosario from [employer]. AMEE-7 Assessment Billing AMEE-7 Assessment Tool: AMEE-7 Assessment 59000 Review of Systems Const Details: - Gastrointestinal: Reports diarrhea 2-3 times per week triggered by spicy food - Respiratory: Reports shortness of breath; Denies recent use of inhalers - Endocrine: Reports cold and clammy feelings; Denies significant weight loss All systems reviewed & are unremarkable except as reviewed in HPI and above Physical exam (Primary Care) Vital Signs: Last Vital Signs Temp 97.9 F 01/25/25 16:24 Pulse 78 01/25/25 16:24 Resp 18 01/25/25 16:24 BP 150/96 H 01/25/25 16:24 Pulse Ox 96 01/25/25 16:24 Oxygen Delivery Method Room Air 01/25/25 16:24 BMI result Body Mass Index 29.9 Tobacco/Smoking Status: Tobacco use Status Tobacco use date assessed 01/25/25 01/25/25 16:27 Patient Tobacco Use Status Current everyday Tobacco 01/25/25 16:27 Tobacco use type Cigarette 01/25/25 16:27 e-Cigarette/Vaping Use Never Used 01/25/25 16:27 Are you ready to quit: Yes Tobacco cessation counseling provided: Yes Relapse Prevention: discussed the importance of a supportive environment and discussed extending NRT Number of minutes spent counselin CPT code: 09634 - 4-10 Minutes Depression Screening Interpretation: Negative Const Other: General: +Alert and oriented, Well nourished, No acute distress. Eye: Pupils are equal, round and reactive to light, Intact accommodation, Extraocular movements are intact, Normal conjunctiva, Vision unchanged. HENT: Normocephalic, Atraumatic, Tympanic membranes are clear, Normal hearing, Oral mucosa is moist, No pharyngeal erythema, Ear canals patent. Respiratory: Lungs CTA bilaterally, No wheeze, Respirations are non-labored. Cardiovascular: Regular rate, Regular rhythm, S1 auscultated, S2 auscultated, No murmur, Good pulses equal in all extremities, Normal peripheral perfusion, No edema. Gastrointestinal: Soft, Non-tender, Non-distended, Normal bowel sounds, No organomegaly, Reports diarrhea 2-3 times a week. Musculoskeletal: Normal range of motion, Normal strength, No tenderness, No swelling, No deformity, Normal gait. Integumentary: Warm, Dry, [place], Intact. Neurologic: Alert, Oriented, Normal sensory, Normal motor function, No focal defects, Cranial Nerves II-XII are grossly intact, Normal deep tendon reflexes. Psychiatric: Cooperative, Appropriate mood & affect, Normal judgment. Coding Level of Care Code New Pt Level 4 (75684) Diagnoses Primary hypertension I10 Hypertension type: primary hypertension Gastroesophageal reflux disease without esophagitis K21.9 Esophagitis presence: without esophagitis Mild intermittent asthma, unspecified whether complicated J45.20 Asthma complication type: unspecified Asthma persistence: intermittent Asthma severity: mild Cigarette nicotine dependence without complication F17.210 Nicotine product type: cigarettes Substance use status: uncomplicated Diarrhea, unspecified type R19.7 Diarrhea type: unspecified type Weight gain R63.5 Additional Codes PHQ-9 - 48958 - PHQ-9 Billing: Yes ([id number]) AMEE-7 Assessment Billing - AMEE-7 Assessment Tool: AMEE-7 Assessment 97567 ([id number]) Vital Signs *Quality* - CPT code: 98158 - 4-10 Minutes ([id number]) Assessment & Plan Assessment & Plan (1) HTN (hypertension): Comment: - Blood pressure appeared elevated during the visit. I advised the patient to monitor his blood pressure at home using a home blood pressure machine. He should check pressures in the morning and evening, specifically before and after medications, for six weeks before his follow-up appointment. Code(s): I10 - Essential (primary) hypertension Category: Medical Qualifiers: Hypertension type: primary hypertension Qualified Code(s): I10 - Essential (primary) hypertension (2) GERD (gastroesophageal reflux disease): Comment: - Continues on omeprazole, which effectively manages symptoms. Further dietary counseling regarding food choices that could aggravate diarrhea associated with GERD was discussed. Code(s): K21.9 - Gastro-esophageal reflux disease without esophagitis Category: Medical Qualifiers: Esophagitis presence: without esophagitis Qualified Code(s): K21.9 - Gastro-esophageal reflux disease without esophagitis (3) Asthma: Comment: - Considerations were made for respiratory symptoms potentially advancing to Chronic Obstructive Pulmonary Disease (COPD) due to long-term smoking history. The patient was educated on the harmful effects of continued smoking and was encouraged to start on nicotine patches to facilitate cessation. Albuterol and Advair inhalers will be refilled for management. Code(s): J45.909 - Unspecified asthma, uncomplicated Category: Medical Qualifiers: Asthma complication type: unspecified Asthma persistence: intermittent Asthma severity: mild Qualified Code(s): J45.20 - Mild intermittent asthma, uncomplicated (4) Nicotine dependence: Comment: - Significant emphasis was placed on smoking cessation to avoid progression to COPD. The patient was interested in nicotine replacement therapy and acknowledged the risks of persistent tobacco use. Code(s): F17.200 - Nicotine dependence, unspecified, uncomplicated Category: Medical Qualifiers: Nicotine product type: cigarettes Substance use status: uncomplicated Qualified Code(s): F17.210 - Nicotine dependence, cigarettes, uncomplicated (5) Diarrhea: Comment: - Identify foods resulting in diarrhea. Code(s): R19.7 - Diarrhea, unspecified Category: Medical Qualifiers: Diarrhea type: unspecified type Qualified Code(s): R19.7 - Diarrhea, unspecified (6) Weight gain: Comment: Endorses weight gain and feeling cold occasionally. On exam does have some swelling in the right submandibular region. We will obtain thyroid testing to ensure his steroids within normal limits if there is a change in kidney functions are unremarkable we will obtain CT imaging Code(s): R63.5 - Abnormal weight gain Category: Medical Plan: Health maintenance: - Colonoscopy and EGD completed last year, next due in 2027 - Screening for thyroid dysfunction and possible imaging if indicated by lab results - Emphasis on smoking cessation for long-term health benefits Patient was informed and verbally consented to the use of an ambient scribe for clinic note documentation during this visit. Plan I discussed the importance of monitoring blood pressure regularly at home due to the current elevated readings and outlined the benefits of potentially adjusting medications once consistent patterns are observed. For shortness of breath, I emphasized the critical nature of smoking cessation to prevent the progression to chronic obstructive pulmonary disease and introduced nicotine replacement therapy as a viable option to facilitate cessation. I reiterated the timely follow-up for blood pressure evaluation to reassess the management plan. The risks of continuous smoking and potential for COPD were highlighted, encouraging the patient to actively seek smoking cessation. I explicitly communicated the importance of dietary monitoring due to triggered diarrhea and its relationship with his gastroesophageal reflux disease. Education on points of familial coronary complications was reiterated for cardioprotection through lifestyle modifications and adherence to preventative measures like aspirin use. Orders: Orders Complete Blood Count Auto Diff Today I10 - Essential (primary) hypertension Syphilis Screen Today I10 - Essential (primary) hypertension Comprehensive Met. Panel Today I10 - Essential (primary) hypertension Hemoglobin A1c Today I10 - Essential (primary) hypertension Hepatitis A,B,C Profile Today I10 - Essential (primary) hypertension HIV Ab/Ag Today I10 - Essential (primary) hypertension Lipid Panel Today I10 - Essential (primary) hypertension TSH reflex Free T4 Today I10 - Essential (primary) hypertension Vitamin D 25-OH Total Today I10 - Essential (primary) hypertension Medications: New albuterol sulfate 90 mcg/actuation (ProAir HFA) 2 puffs inhalation Q6H PRN 8.5 grams 6RF Shortness Of Breath Or Wheezing fluticasone propion-salmeterol 45-21 mcg/actuation (Advair HFA) 2 puffs inhalation BID 12 grams 4RF nicotine 1 patch transdermal Q24H 28 ea 3RF Patient Instructions: - Monitor your blood pressure at home in the morning and evening, before and after taking your medications, and bring these readings to your next appointment in six weeks. - Continue taking your current medications: lisinopril, omeprazole, aspirin, albuterol, and Advair. - Start using nicotine patches to help quit smoking and reduce your shortness of breath. - Avoid known dietary triggers for diarrhea, particularly spicy foods. - Follow the inhaler instructions to manage shortness of breath and inform me if symptoms worsen. - Be vigilant about signs of heart issues, given family history, and take aspirin as directed. - Follow up should be scheduled in six weeks to review blood pressure and any updates in your care plan.
[2025-01-25 16:24] VITALS: BP 150/96; PULSE 78; RESP 18; TEMP 36.6; O2SAT 96; BMI 29.9
== END 2025-01-25 16:40 | disposition home or self-care (01) ==
PROVIDERS: PCP Student in an Organized Health Care Education/Training Program; Visit Provider Student in an Organized Health Care Education/Training Program
DX: I10 Essential (primary) hypertension (principal); K21.9 Gastro-esophageal reflux disease without esophagitis; J45.20 Mild intermittent asthma, uncomplicated; F17.210 Nicotine dependence, cigarettes, uncomplicated; R19.7 Diarrhea, unspecified; R63.5 Abnormal weight gain

== ENCOUNTER → 2025-01-25 16:19 | Outpatient (BNVA) | payer OTHER, SELFPAY | PROVIDERS: PCP Internal Medicine; Visit Provider Student in an Organized Health Care Education/Training Program | DX: I10 Essential (primary) hypertension (principal); K21.9 Gastro-esophageal reflux disease without esophagitis; J45.20 Mild intermittent asthma, uncomplicated; R19.7 Diarrhea, unspecified; R63.5 Abnormal weight gain; F17.210 Nicotine dependence, cigarettes, uncomplicated; Z79.899 Other long term (current) drug therapy; Z13.31 Encounter for screening for depression; Z13.39 Encounter for screening examination for other mental health and behavioral disorders | CPT/HCPCS: 96127 ==